=== PATIENT | female | born 1970 | race Caucasian/White ===

== ENCOUNTER 2021-08-09 12:57 | Outpatient (CLI) | payer OTHER | END 2021-08-09 12:58 | disposition home or self-care (01) | LOC: CSHMAMMO 12:57 | PROVIDERS: ATTEND Family Medicine | DX: R92.8 Other abnormal and inconclusive findings on diagnostic imaging of breast (principal); N63.22 Unspecified lump in the left breast, upper inner quadrant | CPT/HCPCS: 77066; G0279 ==

== ENCOUNTER 2022-09-03 10:25 | Outpatient (CLI) | payer OTHER | END 2022-09-03 10:26 | disposition home or self-care (01) | LOC: CSHMAMMO 10:25 | PROVIDERS: ATTEND Family Medicine | DX: Z12.31 Encounter for screening mammogram for malignant neoplasm of breast (principal) | CPT/HCPCS: 77063; 77067 ==